=== PATIENT | male | born 1950 | race Two or more races ===

== ENCOUNTER 2017-02-19 19:34 | Inpatient (IN) | payer SELFPAY ==
[~2017-02-19] VITALS: Ht 160 cm; Wt 82.7 kg
[2017-02-19] MEDS ORDERED: MORPHINE SULF INJ 2 MG/ML SYRINGE 1ML IV ONE (20:30)
[2017-02-19] MEDS ORDERED: ONDANSETRON HCL 4 MG/2 ML VIAL IV ONE (20:30)
[2017-02-19 20:43] LABS: Basophils # (auto) 0 uL; Basophils % (auto) 0.2 % (0.0-2.0); Eosinophils # (auto) 0.2 uL; Hematocrit 43.3 % (41.0-53.0); Hemoglobin 14.5 g/dL (13.5-17.5); Lymphocytes # (auto) 2.7 uL; Lymphocytes % (auto) 16.8 % (10.0-50.0); Mean Corpuscular Hemoglobin 31.6 pg (28.0-32.0); Mean Corpuscular Hgb Conc. 33.5 g/dL (32.0-36.0); Mean Corpuscular Volume 94.3 fL (80.0-100.0); Mean Platelet Volume 8.8 fL (6.9-10.8); Monocytes # (auto) 0.3 uL; Monocytes % (auto) 2.1 % (0.0-12.0); Neutrophils # (auto) 12.7 uL; Neutrophils % (auto) 79.9 % (37.0-80.0); Platelet Count (auto) 220 10^3/uL (140-450); White Blood Cell 15.8 10^3/uL (4.4-10.8)
[2017-02-19 21:04] LABS: Albumin 3.9 g/dL (3.4-5.0); Alkaline Phosphatase 126 U/L (45-117); Anion Gap 11 (5-15); Aspartate Aminotransferase 197 U/L (15-37); BUN/Creatinine Ratio 16.5; Bilirubin, Total 1.2 mg/dL (0.2-1.0); Blood Urea Nitrogen 19 mg/dL (7-18); Calcium 8.4 mg/dL (8.5-10.1); Carbon Dioxide 24 mmol/L (21-32); Chloride 105 mmol/L (98-107); GFR African American 82 mL/min; GFR Non-African American 68 mL/min; Glucose 209 mg/dL (74-106); Sodium 140 mmol/L (136-145)
[2017-02-19 21:14] LABS: Potassium 2.8 mmol/L (3.5-5.1)
[2017-02-19] MEDS ORDERED: PANTOPRAZOLE 40 MG/10 ML VIAL IV ONE (21:30)
[2017-02-19] MEDS ORDERED: SODIUM CHLORIDE 0.9% 2,000 ML IV ONE (21:30)
[2017-02-19] MEDS: POTASSIUM CHL 20MEQ/50ML 50 ML IV SCH (21:34)
[2017-02-19] MEDS ORDERED: LACTULOSE 20Gm/30ML SOLN PO PRN (23:00)
[2017-02-19] MEDS ORDERED: cefTRIAXone 1GM/10ml IVPUSH 10 ML IV ONE (23:00)
[2017-02-19] MEDS ORDERED: ONDANSETRON HCL 4 MG/2 ML VIAL IV PRN (23:00)
[2017-02-19] MEDS ORDERED: NITROGLYCERIN 0.4 MG SL TAB SL PRN (23:00)
[2017-02-19] MEDS: FAMOTIDINE (10MG/ML) 2ML VL IV SCH (23:26)
[2017-02-19] MEDS: SODIUM CHLORIDE 0.9% 1,000 ML IV SCH (23:26)
[2017-02-20] VITALS: BP 133/78
[2017-02-20] MEDS: KETOROLAC TROMETH 30 MG/ML 1ML VIAL IV PRN ×3 (00:48→16:47)
[2017-02-20] MEDS: POTASSIUM CHL 20MEQ/50ML 50 ML IV SCH (00:48)
[2017-02-20] MEDS ORDERED: INFLUENZA QUAD 2017-2018 0.5 ML SYRG IM ONE (02:30)
[2017-02-20] MEDS ORDERED: PNEUMOCOCCAL VACC POLYS 25 MCG/0.5 ML VIAL IM ONE (02:30)
[2017-02-20 05:08] VITALS: BP 127/72
[2017-02-20 06:13] LABS: Basophils # (auto) 0 uL; Basophils % (auto) 0.1 % (0.0-2.0); Eosinophils # (auto) 0 uL; Hematocrit 39.8 % (41.0-53.0); Hemoglobin 13.7 g/dL (13.5-17.5); Lymphocytes # (auto) 0.3 uL; Lymphocytes % (auto) 2.5 % (10.0-50.0); Mean Corpuscular Hemoglobin 32.1 pg (28.0-32.0); Mean Corpuscular Hgb Conc. 34.3 g/dL (32.0-36.0); Mean Corpuscular Volume 93.7 fL (80.0-100.0); Mean Platelet Volume 8.7 fL (6.9-10.8); Monocytes # (auto) 0.5 uL; Monocytes % (auto) 4.7 % (0.0-12.0); Neutrophils # (auto) 10.7 uL; Neutrophils % (auto) 92.7 % (37.0-80.0); Platelet Count (auto) 148 10^3/uL (140-450); Red Cell Distribution Width 12.9 % (11.8-14.3); White Blood Cell 11.6 10^3/uL (4.4-10.8)
[2017-02-20 06:41] LABS: Albumin 3.3 g/dL (3.4-5.0); Bilirubin, Total 1.1 mg/dL (0.2-1.0); Calcium 7.7 mg/dL (8.5-10.1); Potassium 4.2 mmol/L (3.5-5.1); Total Protein 6.9 g/dL (6.4-8.2)
[2017-02-20] MEDS: SODIUM CHLORIDE 0.9% 1,000 ML IV SCH ×3 (06:45→18:52)
[2017-02-20] MEDS: cefTRIAXone 1GM/10ml IVPUSH 10 ML IV SCH (08:54)
[2017-02-20] MEDS: ENOXAPARIN SOD 30 MG/0.3 ML SYRINGE SC SCH (08:54)
[2017-02-20 09:00] VITALS: BP 120/68
[2017-02-20] MEDS: FAMOTIDINE (10MG/ML) 2ML VL IV SCH ×2 (11:26→23:11)
[2017-02-20 13:00] VITALS: BP 128/62
[2017-02-20 17:00] VITALS: BP 112/59
[2017-02-20] MEDS: SOD CHL 0.9%/ KCL 20MEQ 1,000 ML IV SCH (18:52)
[2017-02-20 21:38] VITALS: BP 108/53
[2017-02-21] MEDS: SODIUM CHLORIDE 0.9% 1,000 ML IV SCH ×5 (01:34→21:28)
[2017-02-21] MEDS: SOD CHL 0.9%/ KCL 20MEQ 1,000 ML IV SCH ×2 (03:16→17:56)
[2017-02-21 05:23] VITALS: BP 100/44
[2017-02-21 07:05] LABS: Potassium 3.5 mmol/L (3.5-5.1)
[2017-02-21 07:11] LABS: BUN/Creatinine Ratio 23.1; Calcium 7.6 mg/dL (8.5-10.1)
[2017-02-21 07:49] VITALS: BP 118/60
[2017-02-21] MEDS: cefTRIAXone 1GM/10ml IVPUSH 10 ML IV SCH (08:58)
[2017-02-21] MEDS: ENOXAPARIN SOD 30 MG/0.3 ML SYRINGE SC SCH (08:58)
[2017-02-21] MEDS: FAMOTIDINE (10MG/ML) 2ML VL IV SCH ×2 (11:01→22:54)
[2017-02-21 11:58] VITALS: BP 133/70
[2017-02-21 17:46] VITALS: BP 130/68
[2017-02-21] MEDS: KETOROLAC TROMETH 30 MG/ML 1ML VIAL IV PRN (17:56)
[2017-02-21 22:00] VITALS: BP 113/56
[2017-02-22] MEDS: SOD CHL 0.9%/ KCL 20MEQ 1,000 ML IV SCH ×3 (01:45→17:32)
[2017-02-22] MEDS: SODIUM CHLORIDE 0.9% 1,000 ML IV SCH ×2 (04:14→09:52)
[2017-02-22 05:15] VITALS: BP 138/68
[2017-02-22 06:37] LABS: BUN/Creatinine Ratio 11.8; Calcium 8.3 mg/dL (8.5-10.1); Potassium 3.5 mmol/L (3.5-5.1)
[2017-02-22 09:15] VITALS: BP 131/67
[2017-02-22] MEDS: cefTRIAXone 1GM/10ml IVPUSH 10 ML IV SCH (09:50)
[2017-02-22] MEDS: ENOXAPARIN SOD 30 MG/0.3 ML SYRINGE SC SCH (09:51)
[2017-02-22] MEDS: FAMOTIDINE (10MG/ML) 2ML VL IV SCH ×2 (09:51→23:16)
[2017-02-22] MEDS: ACETAMINOPHEN 325 MG TAB PO PRN ×2 (09:53→18:54)
[2017-02-22 13:15] VITALS: BP 133/73
[2017-02-22 17:03] VITALS: BP 134/81
[2017-02-22 22:29] VITALS: BP 132/64
[2017-02-23] MEDS: SOD CHL 0.9%/ KCL 20MEQ 1,000 ML IV SCH ×4 (01:11→22:59)
[2017-02-23 05:05] VITALS: BP 146/77
[2017-02-23 07:55] VITALS: BP 146/75
[2017-02-23 08:00] VITALS: BP 146/75
[2017-02-23] MEDS: ENOXAPARIN SOD 30 MG/0.3 ML SYRINGE SC SCH (09:20)
[2017-02-23] MEDS: FAMOTIDINE (10MG/ML) 2ML VL IV SCH ×2 (10:22→23:00)
[2017-02-23] MEDS ORDERED: MULTIPLE VITAMIN TAB PO ONE (10:30)
[2017-02-23 11:59] VITALS: BP 152/75
[2017-02-23 16:54] VITALS: BP 143/72
[2017-02-23 20:00] VITALS: BP_SYST 125; BP_SYST 7; BP_DIAS 59
[2017-02-24] VITALS (7 sets, daily range): BP systolic 98–148; BP diastolic 57–87
[2017-02-24] MEDS: MULTIPLE VITAMIN TAB PO SCH (09:48)
[2017-02-24] MEDS: FAMOTIDINE (10MG/ML) 2ML VL IV SCH ×2 (09:49→23:46)
[2017-02-24] MEDS: ENOXAPARIN SOD 30 MG/0.3 ML SYRINGE SC SCH (09:49)
[2017-02-24] MEDS: SOD CHL 0.9%/ KCL 20MEQ 1,000 ML IV SCH (12:27)
[2017-02-25 05:00] VITALS: BP 127/69
[2017-02-25] MEDS: SOD CHL 0.9%/ KCL 20MEQ 1,000 ML IV SCH ×2 (05:59→12:30)
[2017-02-25 06:45] LABS: BUN/Creatinine Ratio 17.6; Potassium 3.6 mmol/L (3.5-5.1)
[2017-02-25 08:30] VITALS: BP 135/64
[2017-02-25 09:00] VITALS: BP 135/64
[2017-02-25] MEDS: FAMOTIDINE (10MG/ML) 2ML VL IV SCH (10:16)
[2017-02-25] MEDS: ENOXAPARIN SOD 30 MG/0.3 ML SYRINGE SC SCH (10:16)
[2017-02-25] MEDS: MULTIPLE VITAMIN TAB PO SCH (10:16)
[2017-02-25 13:10] VITALS: BP 135/65
[2017-02-25 14:23] VITALS: BP 135/65
== END 2017-02-25 15:00 | disposition home or self-care (01) | DRG 439 ==
LOC: ER 19:34 → TELE 19:35 → EAST 23:44 → TELE-EAST 23:55
PROVIDERS: ADMIT Family Medicine; ATTEND Internal Medicine Pulmonary Disease
DX: K85.20 Alcohol induced acute pancreatitis without necrosis or infection (principal); E44.0 Moderate protein-calorie malnutrition; E87.6 Hypokalemia; Z82.49 Family history of ischemic heart disease and other diseases of the circulatory system; Z68.32 Body mass index [BMI] 32.0-32.9, adult
CPT/HCPCS: 36415; 71010; 74176; 76705; 80048; 80053; 82040; 82150; 83690; 84484; 85025; 96361; 96365; 96375; C9113; J1885; J2405; J3490